=== PATIENT | male | born 2005 | race Caucasian/White ===

== ENCOUNTER 2024-07-08 01:43 | Emergency (ER) | payer OTHER ==
[~2024-07-08] VITALS: Ht 182.9 cm; Wt 73.1 kg
[2024-07-08 01:45] VITALS: BP 118/77; TEMP 96.6; O2SAT 100
== END 2024-07-08 04:15 | disposition left against medical advice (07) ==
LOC: M ED 01:43
DX: Z53.21 Procedure and treatment not carried out due to patient leaving prior to being seen by health care provider (principal)